=== PATIENT | female | born 1930 | race Caucasian/White ===

== ENCOUNTER 2018-05-03 10:55 | Outpatient (CLI) | payer MEDICARE, MEDICAID | END 2018-05-03 23:59 | disposition home health service (06) | LOC: WOU 10:55 | PROVIDERS: ATTEND Podiatrist Foot & Ankle Surgery | DX: L59.8 Other specified disorders of the skin and subcutaneous tissue related to radiation (principal); S91.302A Unspecified open wound, left foot, initial encounter; Y84.2 Radiological procedure and radiotherapy as the cause of abnormal reaction of the patient, or of later complication, without mention of misadventure at the time of the procedure; Y78.1 Therapeutic (nonsurgical) and rehabilitative radiological devices associated with adverse incidents; Y92.89 Other specified places as the place of occurrence of the external cause; L03.116 Cellulitis of left lower limb; Z85.828 Personal history of other malignant neoplasm of skin; M79.672 Pain in left foot; M85.872 Other specified disorders of bone density and structure, left ankle and foot; M19.072 Primary osteoarthritis, left ankle and foot | CPT/HCPCS: 73630-TC; 87070-TC; A6402; G0463 ==

== ENCOUNTER 2018-05-07 10:00 | Outpatient (CLI) | payer MEDICARE, MEDICAID | END 2018-05-07 23:59 | disposition home or self-care (01) | LOC: WOU 10:00 | PROVIDERS: ATTEND Podiatrist Foot & Ankle Surgery | DX: L97.512 Non-pressure chronic ulcer of other part of right foot with fat layer exposed (principal); S90.421S Blister (nonthermal), right great toe, sequela; X58.XXXS Exposure to other specified factors, sequela; Z95.5 Presence of coronary angioplasty implant and graft; Z85.828 Personal history of other malignant neoplasm of skin; G60.9 Hereditary and idiopathic neuropathy, unspecified; Z98.1 Arthrodesis status; L84 Corns and callosities; M20.21 Hallux rigidus, right foot; I10 Essential (primary) hypertension; R93.8 Abnormal findings on diagnostic imaging of other specified body structures | CPT/HCPCS: 11042; 93970-TC; A6402 ==

== ENCOUNTER 2018-05-14 10:54 | Outpatient (CLI) | payer MEDICARE, MEDICAID | END 2018-05-14 23:59 | disposition home health service (06) | LOC: WOU 10:54 | PROVIDERS: ATTEND Podiatrist Foot & Ankle Surgery | DX: I70.248 Atherosclerosis of native arteries of left leg with ulceration of other part of lower leg (principal); L97.828 Non-pressure chronic ulcer of other part of left lower leg with other specified severity; I70.244 Atherosclerosis of native arteries of left leg with ulceration of heel and midfoot; L97.422 Non-pressure chronic ulcer of left heel and midfoot with fat layer exposed; I70.245 Atherosclerosis of native arteries of left leg with ulceration of other part of foot; L97.529 Non-pressure chronic ulcer of other part of left foot with unspecified severity; M19.072 Primary osteoarthritis, left ankle and foot; Z85.828 Personal history of other malignant neoplasm of skin; Z92.3 Personal history of irradiation | CPT/HCPCS: A6402; G0463; Z7610 ==

== ENCOUNTER 2018-06-12 12:30 | Outpatient (CLI) | payer MEDICARE, MEDICAID | END 2018-06-12 23:59 | disposition home or self-care (01) | LOC: VASLAB 12:30 | PROVIDERS: ATTEND Surgery Vascular Surgery | DX: I70.248 Atherosclerosis of native arteries of left leg with ulceration of other part of lower leg (principal); L97.829 Non-pressure chronic ulcer of other part of left lower leg with unspecified severity | CPT/HCPCS: G0463; Z7610 ==